=== PATIENT | male | born 1955 | race Caucasian/White ===

== ENCOUNTER 2022-01-14 21:50 | Emergency (ER) | payer MEDICARE ==
[~2022-01-14] VITALS: Ht 172.7 cm; Wt 86.2 kg
[2022-01-14] MEDS ORDERED: MORP15TA PO (22:43)
[2022-01-14] MEDS ORDERED: SUMA50TA PO (22:43)
[2022-01-14] MEDS ORDERED: metoprolol (22:43)
--- NOTE | 2022-01-14 22:49 | NUR ---
pt in room 4 b c/o josey.
--- NOTE | 2022-01-14 22:53 | NUR ---
Dr. Espitia at bedside for MSE.
[2022-01-14] MEDS ORDERED: METOCLOPRAMIDE HCL 10 MG/2 ML VIAL IV ONE (23:00)
[2022-01-14] MEDS ORDERED: KETOROLAC TROMETHAMINE 30 MG INJ IVP ONE (23:00)
[2022-01-14] MEDS ORDERED: diphenhydrAMINE 50 MG/1 ML VIAL IV ONE (23:00)
[2022-01-14] MEDS ORDERED: IV NS 1000 ML 1,000 ML IV ONE (23:00)
[2022-01-14] MEDS ORDERED: KETOROLAC TROMETHAMINE 30 MG INJ ONE (23:06)
[2022-01-14] MEDS ORDERED: METOCLOPRAMIDE HCL 10 MG/2 ML VIAL ONE (23:06)
[2022-01-14] MEDS ORDERED: diphenhydrAMINE 50 MG/1 ML VIAL ONE (23:06)
[2022-01-14 23:25] LABS: HEMATOCRIT 33.9 % (36.7-47.1); MEAN CORPUSCULAR HEMOGLOBIN 30.5 uug (23.8-33.4); MEAN CORPUSCULAR VOLUME 88.5 fL (73.0-96.2); PLATELET COUNT (AUTO) 245 K/uL (152-348)
[2022-01-14 23:29] LABS: CREATININE 3.2 mg/dL (0.6-1.3); MAGNESIUM 2.1 mg/dL (1.8-2.4); POTASSIUM 4.2 mmol/L (3.5-5.1)
[2022-01-15] MEDS ORDERED: PROCHLORPERAZINE EDISYLATE 10 MG/2 ML VIAL IV ONE (01:00)
[2022-01-15] MEDS ORDERED: MAGNESIUM SULFATE/D5W 200 ML ONE (01:02)
[2022-01-15] MEDS ORDERED: PROCHLORPERAZINE EDISYLATE 10 MG/2 ML VIAL ONE (01:02)
[2022-01-15] MEDS: MAGNESIUM SULFATE/D5W 100 ML IV SCH ×2 (01:09→01:57)
[2022-01-15] MEDS ORDERED: METO-295 PO (01:14)
[2022-01-15] MEDS ORDERED: DIPH25CA83 PO (01:14)
[2022-01-15] MEDS ORDERED: NAPR-1009 PO (01:14)
[2022-01-15 03:50] VITALS: BP 130/68
--- NOTE | 2022-01-15 03:50 | NUR ---
Patient discharged to home in stable condition. Written and verbal after care instructions given. Patient verbalizes understanding of instructions. Stressed follow up or return to ER for worsening s/s.
== END 2022-01-15 03:51 | disposition home or self-care (01) ==
LOC: ER 22:00
DX: G43.909 Migraine, unspecified, not intractable, without status migrainosus (principal); N18.9 Chronic kidney disease, unspecified; R01.1 Cardiac murmur, unspecified; Z98.1 Arthrodesis status
CPT/HCPCS: 36415; 80048; 82607; 83735; 85025; 96361; 96365; 96366; 96375 ×2; 99285; J0780; J1200; J1885; J2765; J3475; J7040; A4663

== ENCOUNTER 2022-01-17 20:09 | Emergency (ER) | payer MEDICARE ==
[~2022-01-17] VITALS: Ht 175.3 cm; Wt 86.2 kg
[~2022-01-17 20:09] MED LIST: DIPH25CA83 PO; METO-295 PO; MORP15TA PO; NAPR-1009 PO; SUMA50TA PO; metoprolol
--- NOTE | 2022-01-17 20:44 | NUR ---
PT TRIAGED AND PLACED IN WAITING ROOM AGAIN, NO AVAILABLE BEDS.
--- NOTE | 2022-01-17 21:11 | NUR ---
PT PLACED IN ROOM 5A.
[2022-01-17 21:40] LABS: HEMATOCRIT 32.7 % (36.7-47.1); MEAN CORPUSCULAR HEMOGLOBIN 29.4 uug (23.8-33.4); MEAN CORPUSCULAR VOLUME 88.2 fL (73.0-96.2); PLATELET COUNT (AUTO) 274 K/uL (152-348)
[2022-01-17 21:57] LABS: BILIRUBIN,DIRECT 0.1 mg/dL (0.0-0.2); BILIRUBIN,TOTAL 0.4 mg/dL (0.2-1.0); CREATININE 1.9 mg/dL (0.6-1.3); POTASSIUM 4.2 mmol/L (3.5-5.1); TOTAL PROTEIN, SERUM 7.4 g/dL (6.4-8.2)
[2022-01-17] MEDS ORDERED: METOCLOPRAMIDE HCL 10 MG/2 ML VIAL ONE (23:11)
[2022-01-17] MEDS: IV NS 1000 ML 1,000 ML IV ONE (23:25)
[2022-01-17] MEDS: METOCLOPRAMIDE HCL 10 MG/2 ML VIAL IV ONE (23:25)
[2022-01-18] MEDS ORDERED: diphenhydrAMINE 50 MG/1 ML VIAL ONE (01:02)
[2022-01-18] MEDS ORDERED: PROCHLORPERAZINE EDISYLATE 10 MG/2 ML VIAL ONE (01:02)
[2022-01-18] MEDS: diphenhydrAMINE 50 MG/1 ML VIAL IV ONE (01:09)
[2022-01-18] MEDS: PROCHLORPERAZINE EDISYLATE 10 MG/2 ML VIAL IV ONE (01:10)
[2022-01-18] MEDS ORDERED: GUAI600T53 PO (03:08)
[2022-01-18] MEDS ORDERED: BENZ-13 PO (03:08)
--- NOTE | 2022-01-18 03:22 | NUR ---
Patient discharged to home in stable condition. Written and verbal after care instructions given. Patient verbalizes understanding of instructions. Stressed follow up or return to ER for worsening s/s. pt ambulated with steady gait with cane. denies pain. no SOB. no chest pain. AOx4
[2022-01-18 03:23] VITALS: BP 127/72
== END 2022-01-18 03:26 | disposition home or self-care (01) ==
LOC: ER 20:09
DX: B34.9 Viral infection, unspecified (principal); R05.9 Cough, unspecified; Z20.822 Contact with and (suspected) exposure to COVID-19; I12.9 Hypertensive chronic kidney disease with stage 1 through stage 4 chronic kidney disease, or unspecified chronic kidney disease; N18.9 Chronic kidney disease, unspecified
CPT/HCPCS: 36415; 71045; 83605; 85025; 87040; 87400; 93005; J0780; J1200; J2765; J7040

== ENCOUNTER 2023-12-14 19:25 | Emergency (ER) | payer MEDICARE ==
[~2023-12-14] VITALS: Ht 172.7 cm; Wt 90.7 kg
[~2023-12-14 19:25] MED LIST changes: +BENZ-13 PO; +GUAI600T53 PO
[2023-12-14] MEDS ORDERED: TDAP DIPH,PERTUSS,TET VAC/PF 0.5 ML DISP.SYRIN IM ONE (19:50)
[2023-12-14] MEDS ORDERED: NEOMY/BACITRA/POLYMYXIN B OINT UD PACKET TP ONE (19:50)
[2023-12-14] MEDS: NEOMY/BACITRA/POLYMYXIN B OINT UD PACKET TP ONE (19:57)
[2023-12-14] MEDS: TDAP DIPH,PERTUSS,TET VAC/PF 0.5 ML DISP.SYRIN IM ONE (19:57)
[2023-12-14 20:55] VITALS: BP 112/77; O2SAT 97
== END 2023-12-14 20:56 | disposition home or self-care (01) ==
LOC: ER 19:28
DX: S00.83XA Contusion of other part of head, initial encounter (principal); S60.221A Contusion of right hand, initial encounter; G43.909 Migraine, unspecified, not intractable, without status migrainosus; N18.9 Chronic kidney disease, unspecified; Z98.890 Other specified postprocedural states; Z79.899 Other long term (current) drug therapy; W18.39XA Other fall on same level, initial encounter; Y93.89 Activity, other specified; Y92.89 Other specified places as the place of occurrence of the external cause; Y99.8 Other external cause status
CPT/HCPCS: 70450; 72125; 73130; 90715; A4606; A4663